=== PATIENT | female | born 1990 | race Caucasian/White ===

== ENCOUNTER 2020-06-15 16:28 | Emergency (ER) | payer MEDICAID, SELFPAY ==
[2020-06-15 16:30] VITALS: BP 118/59; PULSE 85; RESP 20; TEMP 36.7; O2SAT 100
--- NOTE | 2020-06-15 16:45 | ED.GENADULT ---
HPI - General Adult General Chief complaint: Extremity Injury, Upper Stated complaint: left pinky injury that is not healing well Time Seen by Provider: 06/15/20 16:30 Source: patient Mode of arrival: ambulatory Limitations: no limitations History of Present Illness HPI narrative: Patient is a 30-year-old female who presents with left pinky finger injury that occurred over 2 weeks ago was seen at an urgent care 2 days prior had negative radiographs was placed and finger splint/patient notes she has continued to have pain patient notes at the time she had jammed the finger initially. Patient denies other injuries or complaints. Patient notes difficulty with range of motion. Patient is visiting from out of town and is planning to go home in approximately 10 days Related Data Home Medications Medication Instructions Recorded Confirmed No Home Medications 06/15/20 06/15/20 Allergies Allergy/AdvReac Type Severity Reaction Status Date / Time No Known Allergies Allergy Verified 06/15/20 16:35 Review of Systems Review of Systems: Narrative: CONSTITUTIONAL: Denies fever, chills, or sweats. SKIN: Denies rash or itching. MUSCULOSKELETAL: Positive for joint pain denies swelling NEUROLOGIC: Denies numbness PMFSH Social History Social History Gender identity (if verbalized by the patient): Female Exam Narrative: Exam Narrative: GENERAL: Well-appearing, well-nourished, and in no acute distress. HEAD: Normocephalic, atraumatic. EYES: PERRLA and EOMI. ENT: Nares clear, no rhinorrhea or epistaxis. Mucous membranes moist. EXTREMITIES: Normal range of motion. No edema. Tenderness over the lateral aspect at the PIP joint involving the left fifth digit no other deformities noted SKIN: Warm, dry, no rash. NEURO: No focal deficits. Alert and oriented x3. Neurovascularly intact. Capillary refill less than 2 seconds PSYCH: Normal mood and affect. Course Course Emergency Course: Patient advised that she should follow with specialty services upon returning home she notes she will contact her primary care to facilitate getting hand surgery referrals was offered and surgery referrals but notes that she is going to be traveling home and does not prefer to see someone in [place] and will see them upon returning to [place] Vital Signs Vital signs: Vital Signs Temperature 98.0 F 06/15/20 16:30 Pulse Rate 85 06/15/20 16:30 Respiratory Rate 20 06/15/20 16:30 Blood Pressure 118/59 L 06/15/20 16:30 Pulse Oximetry 100 06/15/20 16:30 Temperature 98.0 F 06/15/20 16:30 Pulse Rate 85 06/15/20 16:30 Respiratory Rate 20 06/15/20 16:30 Blood Pressure 118/59 L 06/15/20 16:30 Pulse Oximetry 100 06/15/20 16:30 Medical Decision Making MDM Narrative Medical decision making narrative: Patients injury or pain is consistent with musculoskeletal etiology. No signs of neurological or vascular compromise on exam. Compartments and tisues are soft without signs of compartment syndrome. Pain is felt appropriate for further evaluation on an outpatient basis. Vital Signs Vital Signs: Vital Signs Temperature 98.0 F 06/15/20 16:30 Pulse Rate 85 06/15/20 16:30 Respiratory Rate 20 06/15/20 16:30 Blood Pressure 118/59 L 06/15/20 16:30 Pulse Oximetry 100 06/15/20 16:30 Temperature 98.0 F 06/15/20 16:30 Pulse Rate 85 06/15/20 16:30 Respiratory Rate 20 06/15/20 16:30 Blood Pressure 118/59 L 06/15/20 16:30 Pulse Oximetry 100 06/15/20 16:30 Discharge Plan Discharge Clinical Impression: Finger sprain Patient Disposition: Home, Self-Care Condition: Stable Instructions: Antibiotic Form, Arthralgia (ED) Additional Instructions: Follow-up with hand surgery upon returning home Return if symptoms worsen or concerns or any increase in redness swelling pain fever over 100.5 or any loss of feeling or function in the extremity Only
== END 2020-06-15 17:25 | disposition home or self-care (01) ==
LOC: ANHED 16:56
PROVIDERS: Emergency Provider Emergency Medicine
DX: S63.617A Unspecified sprain of left little finger, initial encounter (principal); W21.01XA Struck by football, initial encounter
CPT/HCPCS: 99282